=== PATIENT | female | born 1955 | race Caucasian/White ===

== ENCOUNTER 2017-07-21 16:51 | Emergency (ER) | payer OTHER ==
[~2017-07-21] VITALS: Ht 167.6 cm; Wt 69.5 kg
[~2017-07-21 16:51] MED LIST: FEMHRT 1/5; LITH450T; PROZ20CA11; TRAZ100T50
[2017-07-21 16:53] VITALS: BP 176/90; PULSE 75; RESP 16; TEMP 98.3; O2SAT 100
[2017-07-21 17:27] LABS: AUTOMATED NEUTROPHIL # 5.3 TH/MM3 (1.8-7.7); BASOPHIL % 0.6 % (0.0-2.0); EOSINOPHIL # 0.1 TH/MM3 (0-0.4); EOSINOPHIL % 1.6 % (0.0-4.0); HEMATOCRIT 39.7 % (35.0-46.0); HEMOGLOBIN 13.6 GM/DL (11.6-15.3); LYMPH % 25.3 % (9.0-44.0); MEAN CELL VOLUME 96.7 FL (80.0-100.0); MEAN CORPUSCULAR HEMOGLOBIN 33.1 PG (27.0-34.0); MEAN CORPUSCULAR HGB CONC 34.2 % (32.0-36.0); MEAN PLATELET VOLUME 9.6 FL (7.0-11.0); MONO % 6.3 % (0.0-8.0); MONOCYTE # 0.5 TH/MM3 (0-0.9); NEUT % 66.2 % (16.0-70.0); PLATELET COUNT 207 TH/MM3 (150-450); RED CELL DISTRIBUTION WIDTH 13.3 % (11.6-17.2); WHITE BLOOD COUNT 8.1 TH/MM3 (4.0-11.0)
[2017-07-21 17:56] LABS: BICARBONATE 25.7 MEQ/L (21.0-32.0); BLOOD UREA NITROGEN 16 MG/DL (7-18); CALCIUM 8.5 MG/DL (8.5-10.1); CHLORIDE 107 MEQ/L (98-107); CREATININE 0.75 MG/DL (0.50-1.00); GLOMERULAR FILTRATION RATE 79 ML/MIN (>89); GLUCOSE,RANDOM 81 MG/DL (74-106); MAGNESIUM 2.3 MG/DL (1.5-2.5); SODIUM (NA) 140 MEQ/L (136-145)
[2017-07-21 17:59] LABS: TROPONIN I LESS THAN 0.02 NG/ML (0.02-0.05)
--- NOTE | 2017-07-21 18:10 | RADRPT ---
EXAM DATE/TIME: 07/21/2017 17:53 [place] COMPARISON: No previous studies available for comparison. INDICATIONS : Chest pain MEDICAL HISTORY : Posterior left lung cyst. SURGICAL HISTORY : None. ENCOUNTER: Initial ACUITY: 1 day PAIN SCORE: 2/10 LOCATION: Bilateral chest FINDINGS: PA and lateral views of the chest demonstrate the lungs to be symmetrically aerated without evidence of mass, infiltrate or effusion. The cardiomediastinal contours are unremarkable. Osseous structure s are intact with a mild dextroscoliosis of the thoracolumbar spine which may be positional. CONCLUSION: No acute cardiopulmonary process. Alberto Estes MD on July 21, 2017 at 18:07 Board Certified Radiologist. This report was verified electronically.
--- NOTE | 2017-07-21 18:21 | PD ---
HPI Chief Complaint: Chest Pain Time Seen by Provider: 17:27 Travel History International Travel<30 days: No Contact w/Intl Traveler<30days: No Traveled to known affect area: No History of Present Illness HPI This 62-year-old presents emergency department complaining of migrating pinching chest pain lasting 30 seconds at a time ongoing for the past several months. A little bit worse recently. More stress recently. She thinks it's associated with stress but was worried about is she wanted to get it checked out. She also had some palpitations. No shortness of breath. No other complaints. History Past Medical History Narrative Medical Bipolar disorder, anxiety Hypertension Influenza Vaccination: Yes Menopausal: Yes : 1 Para: 1 Social History Alcohol Use: Yes (glass of wine every other night) Tobacco Use: No (QUIT 25 YRS AGO. H/O 6 PACK YRS. ) Allergies-Medications (Allergen,Severity, Reaction): Coded Allergies: clarithromycin (Unverified Allergy, Intermediate, RASH/ITCHING, 07/21/17) amlodipine (Verified Adverse Reaction, Unknown, Swelling, 07/21/17) Reported Meds & Prescriptions Reported Meds & Active Scripts Active Review of Systems Except as stated in HPI: all other systems reviewed are Neg Physical Exam Narrative GENERAL: Well-appearing 62-year-old woman, no acute distress. SKIN: Focused skin assessment warm/dry. HEAD: Atraumatic. Normocephalic. EYES: Pupils equal and round. No scleral icterus. No injection or drainage. ENT: No nasal bleeding or discharge. Mucous membranes pink and moist. NECK: Trachea midline. No JVD. CARDIOVASCULAR: Regular rate and rhythm. No murmur appreciated. RESPIRATORY: No accessory muscle use. Clear to auscultation. Breath sounds equal bilaterally. GASTROINTESTINAL: Abdomen soft, non-tender, nondistended. Hepatic and splenic margins not palpable. MUSCULOSKELETAL: No obvious deformities. No clubbing. No cyanosis. No edema. NEUROLOGICAL: Awake and alert. No obvious cranial nerve deficits. Motor grossly within normal limits. Normal speech. PSYCHIATRIC: Appropriate mood and affect; insight and judgment normal. Data Data Last Documented VS Vital Signs Date Time Temp Pulse Resp B/P (MAP) Pulse Ox O2 Delivery O2 Flow Rate FiO2 07/21/17 16:53 98.3 75 16 176/90 (118) 100 Orders Orders Electrocardiogram (07/21/17 16:58) Basic Metabolic Panel (Bmp) (07/21/17 16:58) Ckmb (Isoenzyme) Profile (07/21/17 16:58) Complete Blood Count With Diff (07/21/17 16:58) Magnesium (Mg) (07/21/17 16:58) Prothrombin Time / Inr (Pt) (07/21/17 16:58) Act Partial Throm Time (Ptt) (07/21/17 16:58) Troponin I (07/21/17 16:58) Chest, Pa & Lat (07/21/17 16:58) Labs Laboratory Tests Test 07/21/17 17:05 White Blood Count 8.1 TH/MM3 Red Blood Count 4.10 MIL/MM3 Hemoglobin 13.6 GM/DL Hematocrit 39.7 % Mean Corpuscular Volume 96.7 FL Mean Corpuscular Hemoglobin 33.1 PG Mean Corpuscular Hemoglobin Concent 34.2 % Red Cell Distribution Width 13.3 % Platelet Count 207 TH/MM3 Mean Platelet Volume 9.6 FL Neutrophils (%) (Auto) 66.2 % Lymphocytes (%) (Auto) 25.3 % Monocytes (%) (Auto) 6.3 % Eosinophils (%) (Auto) 1.6 % Basophils (%) (Auto) 0.6 % Neutrophils # (Auto) 5.3 TH/MM3 Lymphocytes # (Auto) 2.0 TH/MM3 Monocytes # (Auto) 0.5 TH/MM3 Eosinophils # (Auto) 0.1 TH/MM3 Basophils # (Auto) 0.0 TH/MM3 CBC Comment DIFF FINAL Differential Comment Prothrombin Time 10.0 SEC Prothromb Time International Ratio 1.0 RATIO Activated Partial Thromboplast Time 25.7 SEC Blood Urea Nitrogen 16 MG/DL Creatinine 0.75 MG/DL Random Glucose 81 MG/DL Calcium Level 8.5 MG/DL Magnesium Level 2.3 MG/DL Sodium Level 140 MEQ/L Potassium Level 3.6 MEQ/L Chloride Level 107 MEQ/L Carbon Dioxide Level 25.7 MEQ/L Anion Gap 7 MEQ/L Estimat Glomerular Filtration Rate 79 ML/MIN Total Creatine Kinase 51 U/L Troponin I LESS THAN 0.02 NG/ML MDM Medical Decision Making Medical Screen Exam Complete: Yes Emergency Medical Condition: Yes Interpretation(s) Review of EKG: Normal sinus rhythm at a rate of 69, normal axis, normal intervals, no acute ischemia. Minimal ST depressions, I don't believe these are significant. Chest x-ray: Negative CBC unremarkable. BMP unremarkable Troponin negative Coags unremarkable Differential Diagnosis Anxiety, palpitations, as well as ACS, PE, other Narrative Course Medical decision-making new para 65 year-old woman presents emergent from with chest pain, very atypical presentation, likely anxiety. Looks well. Labs normal. X-ray EKG without definite ischemia. Diagnosis Primary Impression: Chest pain Additional Instructions: Follow-up with your primary doctor in the next 2-4 days. Return to the emergency department for any new or worsening symptoms. Med/Other Pt SpecificInfo: No Change to Meds Disposition: 01 DISCHARGE HOME Condition: Stable Beto Mccormick MD Jul 21, 2017 18:21
--- NOTE | 2017-07-22 00:34 | EKG ---
Date Performed: 07/21/2017 Time Performed: 17:06:10 PTAGE: 62 years EKG: Sinus rhythm MINIMAL ST DEPRESSION BORDERLINE ECG NO PREVIOUS TRACING DOCTOR: Jayden Camarillo Interpretating Date/Time 07/22/2017 00:33:03
== END 2017-07-21 19:15 | disposition home or self-care (01) ==
LOC: NEPE 16:51
DX: R07.9 Chest pain, unspecified (principal); R00.2 Palpitations; F31.9 Bipolar disorder, unspecified; F41.9 Anxiety disorder, unspecified; I10 Essential (primary) hypertension; Z88.8 Allergy status to other drugs, medicaments and biological substances; Z87.891 Personal history of nicotine dependence
CPT/HCPCS: 71046; 80048; 82550; 83735; 84484; 85025; 85610; 85730; 93005